=== PATIENT | male | born 1960 | race Caucasian/White ===

== ENCOUNTER → 2016-10-10 | Outpatient (CLI) | payer MEDICARE ==
[2016-10-10 14:23] LABS: BASOPHIL % 0.2 %; EOSINOPHIL # 0.1 K/uL (0.0-0.5); EOSINOPHIL % 0.9 %; HEMATOCRIT 38.5 % (37.0-53.0); HEMOGLOBIN 13.4 g/dL (12.0-17.0); IMMATURE GRANULOCYTE # 0.1 K/uL (0.0-0.3); IMMATURE GRANULOCYTE % 0.6 %; LYMPHOCYTE # 1.2 K/uL (0.8-4.0); LYMPHOCYTE % 13.8 %; MCH 30.7 pg (27.0-34.0); MCHC 34.8 gm/dL (32.0-36.5); MCV 88.3 fl (83.0-98.0); MONOCYTE # 0.5 K/uL (0.0-1.0); MONOCYTE % 5.2 %; MPV 10.3 fl (9.4-12.4); NEUTROPHIL # (ANC) 7.1 K/uL (1.4-9.0); NEUTROPHIL % 79.3 %; NRBC % 0 /100WBC (0-0.00); PLATELET COUNT 208 K/uL (150-450); RBC 4.36 M/uL (4.00-6.00); RDW-CV 11.6 % (11.9-14.6); WBC 8.9 K/uL (4.0-11.0)
== END | disposition disaster alternative care site (69) ==
LOC: LELM 10:39
PROVIDERS: Family Medicine
DX: L03.115 Cellulitis of right lower limb (principal)

== ENCOUNTER → 2017-01-05 | Outpatient (CLI) | payer MEDICARE | LOC: LKOF 11:58 | DX: Z47.89 Encounter for other orthopedic aftercare (principal) ==